=== PATIENT | female | born 1980 | race Caucasian/White ===

== ENCOUNTER 2022-01-01 09:51 | Emergency (ER) | payer OTHER, SELFPAY ==
--- NOTE | 2022-01-01 09:56 | ED.WOUNDLAC ---
HPI - Wound/Laceration General Chief Complaint: Wound/Laceration Stated Complaint: CUT THUMB Time Seen by Provider: 01/01/22 09:56 Source: patient and RN notes reviewed Mode of arrival: ambulatory Limitations: no limitations History of Present Illness HPI narrative: Accidentally cut it with a box knife. Palpation makes it worse bandaging made it feel better and stopped the bleeding. Onset (ago): minute(s) (20) Extremity Location: Left: hand (thumb) Place: home Patient tetanus UTD: No Context: accidental and sharp object use Associated symptoms: none Treatments prior to arrival: bandage Related Data Home Medications Medication Instructions Recorded Confirmed No Home Medications 01/01/22 01/01/22 Allergies Allergy/AdvReac Type Severity Reaction Status Date / Time fexofenadine [From Coco] Allergy Rash Verified 01/01/22 10:30 Review of Systems Review of Systems: All systems reviewed & are unremarkable except as noted in HPI and below PMFSH Past Medical History Medical History (Updated 01/01/22 @ 10:16 by Tirso Schmitz MD) No active medical problems Surgical History Surgical History (Updated 01/01/22 @ 10:11 by Tirso Schmitz MD) No pertinent past surgical history Exam Const: General: healthy appearing, no acute distress and alert Nutritional Appearance: well nourished and thin Orientation/consciousness: patient oriented x3 Limitations: no limitations HENMT: Head: normal to inspection Ears: external ears normal Eyes: Conjunctivae: conjunctivae normal Pupils: Equal, round and reactive pupils present EOM: EOMs intact bilaterally Neck: Neck: normal visual inspection and no lymphadenopathy Resp: Effort & Inspection: normal respiratory effort Auscultation: clear to auscultation bilaterally Cardio: Rate: regular rate Rhythm: regular rhythm GI: GI Palp: Yes Soft to palpation and No Tenderness to palpation present (GI) Auscultation: normal bowel sounds Back/Spine/Pelvis: Cervical Spine: cervical ROM normal Thoracic/Lumbar Spine: thoraco-lumbar ROM normal Skin: General skin exam: normal color Rashes: no rashes Wounds: wounds noted laceration left palmar thumb size (1 cm) Neuro: General: patient oriented x3, moves all extremities, no focal motor deficits and CN's II-XI intact bilaterally Speech: normal speech Gait exam (Neuro): Normal gait present Extrem: General: normal to inspection and no clubbing, cyanosis or edema Psych: Mental Status: mental status grossly normal Affect: normal affect Attitude: cooperative Course Vital Signs Vital signs: Vital Signs Temperature 36.2 C L 01/01/22 10:05 Pulse Rate 90 01/01/22 10:05 Respiratory Rate 16 01/01/22 10:05 Blood Pressure 120/90 01/01/22 10:05 Pulse Oximetry 98 01/01/22 10:05 Oxygen Delivery Room Air 01/01/22 10:05 Temperature 36.2 C L 01/01/22 10:05 Pulse Rate 90 01/01/22 10:05 Respiratory Rate 16 01/01/22 10:05 Blood Pressure 120/90 01/01/22 10:05 Pulse Oximetry 98 01/01/22 10:05 Oxygen Delivery Room Air 01/01/22 10:05 Procedures Laceration Laceration 1: Date: 01/01/22 Site: hand (thumb) Side (If applicable): left Size (cm): 1 Description: linear Depth: simple, single layer Pre-repair: wound explored ====== Skin Level ====== Skin layer closed with: steri strips ====== Subcutaneous Layer ====== ====== Muscle Layer ====== ====== Tendon Layer ====== Discharge Plan Discharge Clinical Impression: Laceration of left thumb without foreign body Qualifiers: Encounter type: initial encounter Damage to nail status: without damage Qualified Code(s): S61.012A - Laceration without foreign body of left thumb without damage to nail, initial encounter Patient Disposition: Home, Self-Care Condition: Improved Instructions: Steristrips (ED), Acute Wounds (ED) Prescriptions: No Action No Home Med
[2022-01-01 10:05] VITALS: BP 120/90; PULSE 90; RESP 16; TEMP 36.2; O2SAT 98
[2022-01-01] MEDS: TETANUS,DIPHTHERIA,AC PERTUSSIS ADULT 0.5 ML (ADACEL) IM (10:22)
== END 2022-01-01 10:28 | disposition home or self-care (01) ==
PROVIDERS: Emergency Provider Emergency Medicine; PCP Family Medicine
DX: S61.012A Laceration without foreign body of left thumb without damage to nail, initial encounter (principal); W45.8XXA Other foreign body or object entering through skin, initial encounter
CPT/HCPCS: 90471; 90715; 99282